=== PATIENT | male | born 1985 | race Hispanic/Latino ===

== ENCOUNTER 2019-01-07 23:42 | Inpatient (IN) | payer SELFPAY ==
[~2019-01-07 23:42] MED LIST: Iopamidol 370 76% 50 ML VIAL FS ONE
[2019-01-08] MEDS ORDERED: Lidocaine 1% w/Epinephrine 1:100K 20 ML VIAL ONE (00:42)
[2019-01-08 00:47] LABS: Bilirubin Negative (Negative); Blood, Urine Negative (Negative); Clarity Clear (Clear); Glucose, Urine (Dipstick) Normal (Negative); Leukocyte Negative Leu/uL (Negative); Nitrite Negative (Negative); Protein, Urine (Dipstick) Negative (Neg-Trace); Urobilinogen Normal mg/dL (Less than 2)
[2019-01-08 00:53] LABS: #Lymphocytes 1.4 thou/uL (1.20-3.40); #Monocytes 0.4 thou/uL (0.11-0.59); #Neutrophils 9.9 thou/uL (1.40-6.50); %Basophils 0.3 % (0.0-1.0); %Lymphocytes 11.8 % (21.0-51.0); %Monocytes 3.5 % (0.0-10.0); %Neutrophils 84.3 % (42.0-75.0); Hemoglobin 15.4 g/dL (14.0-18.0); Mean Corpuscular HGB CONC 34.4 g/dL (32.0-36.0); Mean Corpuscular Hemoglobin 31.2 pg (27.0-31.0); Mean Corpuscular Volume 90.5 fL (78.0-98.0); Mean Platelet Volume 8.8 fL (7.4-10.4); Platelet Count 195 thou/uL (130-400); RBC Distribution Width 13.7 % (11.5-14.5); Red Blood Cell (RBC) Count 4.95 mill/uL (4.70-6.10); White Blood Cell (WBC) Count 11.7 thou/uL (4.8-10.8)
[2019-01-08] MEDS ORDERED: Ketamine 50 MG/ML (10ML VIAL) ONE (01:02)
[2019-01-08 01:07] LABS: ALT (SGPT) 20 U/L (8-55); AST (SGOT) 33 U/L (5-34); Acetaminophen Less than 6.0 mcg/mL (10.0-30.0); Albumin 4.8 g/dL (3.5-5.0); Alcohol 386 mg/dL (Less than 10); Alkaline Phosphatase 88 U/L (40-110); Anion Gap 18 mmol/L (10-20); BUN (Urea Nitrogen) 4 mg/dL (8.9-20.6); Bilirubin, Total 0.3 mg/dL (0.2-1.2); Calc. Creatinine Clearance 0 mL/min (70-130); Calcium 8.7 mg/dL (7.8-10.44); Carbon Dioxide 18 mmol/L (22-29); Chloride 110 mmol/L (98-107); Estimated GFR-MDRD Greater than 90; Globulin 3.4 g/dL (2.4-3.5); Glucose 146 mg/dL (70-105); Lipase 10 U/L (8-78); Potassium 3.8 mmol/L (3.5-5.1); Protein, Total 8.2 g/dL (6.0-8.3); Salicylate Less than 8.0 mg/dL (15.0-30.0); Sodium 142 mmol/L (136-145)
[2019-01-08 01:30] LABS: Amphetamine Not Detected (NotDetected); Barbiturates Screen Not Detected (NotDetected); Benzodiazepine Screen Not Detected (NotDetected); Cocaine Metabolite Screen Detected (NotDetected); Medtox Control Line Valid? VALID (VALID); Medtox Reader # READER 4; Methadone Not Detected (NotDetected); Methamphetamine Not Detected (NotDetected); Opiate Screen Not Detected (NotDetected); Oxycodone Screen Not Detected (NotDetected); Phencyclidine (PCP) Not Detected (NotDetected); THC/Cannabinoid Screen Not Detected (NotDetected); Tricyclic Screen Not Detected (NotDetected)
[2019-01-08] MEDS ORDERED: Adacel (T-DAP) 0.5 ML SYRINGE ONE (01:31)
[2019-01-08] MEDS ORDERED: Ondansetron PF 4 MG/2 ML Vial ONE (01:31)
[2019-01-08] MEDS ORDERED: Lorazepam 2 MG/ML VIAL ONE ×2 (02:34→06:26)
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
[2019-01-08] MEDS ORDERED: Bacitracin 1 PK ONE (03:50)
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
[2019-01-08] MEDS: Sodium Chloride 0.9% 1,000 ML IV SCH ×3 (07:00→22:32)
[2019-01-08] MEDS ORDERED: Ondansetron ODT 4 MG TAB PO PRN (07:24)
[2019-01-08] MEDS ORDERED: hydrALAZINE 20 MG/ML VIAL SLOW IVP PRN (07:24)
[2019-01-08] MEDS ORDERED: Ondansetron PF 4 MG/2 ML Vial IVP PRN (07:24)
[2019-01-08] MEDS ORDERED: Dextrose 5% in Water 1,000 ML IV PRN (07:24)
[2019-01-08] MEDS ORDERED: Dextrose 50% Abboject 50 ML SYRINGE SLOW IVP PRN (07:24)
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
[2019-01-08] MEDS: Acetaminophen 1,000 MG in Premix Bag 1 BAG IVPB SCH ×3 (08:15→19:09)
[2019-01-08] MEDS ORDERED: Famotidine/PF 20 mg/2ml Vial ONE (09:05)
[2019-01-08] MEDS: Bacitracin Zinc Ointment 30 gm TUBE TOP SCH (09:13)
[2019-01-08] MEDS: Famotidine/PF 20 mg/2ml Vial SLOW IVP SCH ×2 (09:14→21:19)
[2019-01-08 11:15] VITALS: BMI 23.3
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
[2019-01-08] MEDS: Oxazepam 10 MG CAP PO SCH (21:19)
[2019-01-08] MEDS ORDERED: Cyclobenzaprine 10 MG TAB PO PRN (22:29)
[2019-01-08] MEDS ORDERED: traMADol HCl 50 MG TAB PO PRN ×2 (22:29)
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
[2019-01-09] MEDS: Sodium Chloride 0.9% 1,000 ML IV SCH (02:53)
[2019-01-09 05:27] LABS: #Lymphocytes 1.1 thou/uL (1.20-3.40); #Monocytes 0.6 thou/uL (0.11-0.59); #Neutrophils 5.9 thou/uL (1.40-6.50); %Basophils 0.5 % (0.0-1.0); %Eosinophils 0.3 % (0.0-10.0); %Lymphocytes 14.2 % (21.0-51.0); %Monocytes 8.1 % (0.0-10.0); %Neutrophils 76.9 % (42.0-75.0); Hemoglobin 12.5 g/dL (14.0-18.0); Mean Corpuscular HGB CONC 33.2 g/dL (32.0-36.0); Mean Corpuscular Hemoglobin 30.2 pg (27.0-31.0); Mean Corpuscular Volume 90.9 fL (78.0-98.0); Mean Platelet Volume 9.2 fL (7.4-10.4); Platelet Count 141 thou/uL (130-400); RBC Distribution Width 13.5 % (11.5-14.5); Red Blood Cell (RBC) Count 4.15 mill/uL (4.70-6.10); White Blood Cell (WBC) Count 7.7 thou/uL (4.8-10.8)
[2019-01-09 05:48] LABS: Anion Gap 8 mmol/L (10-20); BUN (Urea Nitrogen) 6 mg/dL (8.9-20.6); Calc. Creatinine Clearance 151 mL/min (70-130); Calcium 8.6 mg/dL (7.8-10.44); Carbon Dioxide 28 mmol/L (22-29); Chloride 105 mmol/L (98-107); Estimated GFR-MDRD Greater than 90; Glucose 104 mg/dL (70-105); Sodium 137 mmol/L (136-145)
[2019-01-09] MEDS: Oxazepam 10 MG CAP PO SCH ×2 (05:48→14:27)
[2019-01-09] MEDS: Famotidine/PF 20 mg/2ml Vial SLOW IVP SCH (08:29)
[2019-01-09] MEDS: Bacitracin Zinc Ointment 30 gm TUBE TOP SCH (08:30)
[2019-01-09] MEDS ORDERED: Senokot S 8.6-50 MG TAB PO SCH (09:00)
[2019-01-09] MEDS ORDERED: Polyethylene Glycol 3350 17 GM Packet PO SCH (09:00)
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
[2019-01-09 11:36] VITALS: BP 136/84; TEMP 98.9
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
== END 2019-01-09 16:00 | disposition home or self-care (01) | DRG 89 ==
LOC: ERS 23:42 → EDBD 23:42 → ERHOLD 01-08 01:54 → SURG A 01-08 09:45
PROVIDERS: ADMIT Surgery; ATTEND Surgery
PROC: 0JQG3ZZ Repair Right Lower Arm Subcutaneous Tissue and Fascia, Percutaneous Approach (ICD-10-PCS; principal; 2019-01-08)
PROC: 0HQ1XZZ Repair Face Skin, External Approach (ICD-10-PCS; 2019-01-08)
DX: S06.0X9A Concussion with loss of consciousness of unspecified duration, initial encounter (principal); S12.090A Other displaced fracture of first cervical vertebra, initial encounter for closed fracture; N13.30 Unspecified hydronephrosis; V09.9XXA Pedestrian injured in unspecified transport accident, initial encounter; S01.01XA Laceration without foreign body of scalp, initial encounter; S51.811A Laceration without foreign body of right forearm, initial encounter; F14.10 Cocaine abuse, uncomplicated; F10.129 Alcohol abuse with intoxication, unspecified; R40.2412 Glasgow coma scale score 13-15, at arrival to emergency department; R33.9 Retention of urine, unspecified
CPT/HCPCS: 36415; 70450; 70486; 71260; 72125; 74177; 80048; 80053; 80306; 80307; 81003; 83690; 85025; 86850; 86900; 86901; 90715; 94760; G0390; J0131; J0690; J2060; J2405; Q9967; S0028

== ENCOUNTER 2019-02-21 15:06 | Outpatient (CLI) | payer SELFPAY ==
--- NOTE | 2019-02-21 15:27 | RAD ---
EXAM: 3 views of the cervical spine HISTORY: Cervical fracture COMPARISON: None FINDINGS: AP, lateral, and open mouth odontoid views of the cervical spine shows normal height and al ignment of the vertebral bodies and intervertebral discs without fracture or subluxation. The previously seen small chip fracture off the left lateral mass of C1 cannot be appreciated on this exa m. No degenerative changes are seen. No prevertebral soft tissue swelling is seen. IMPRESSION: Nonvisualization of C1 lateral mass fracture.
== END 2019-02-21 15:07 | disposition home or self-care (01) ==
LOC: TBSIIMAG 15:06
PROVIDERS: ATTEND Neurological Surgery
DX: S12.040 Displaced lateral mass fracture of first cervical vertebra (principal)
CPT/HCPCS: 72040